=== PATIENT | male | born 1950 | race Asian ===

== ENCOUNTER 2016-07-12 13:42 | Emergency (ER) | payer SELFPAY ==
[~2016-07-12] VITALS: Ht 165.1 cm; Wt 73.0 kg
[2016-07-12 13:44] VITALS: BP 165/75; PULSE 76; RESP 20; TEMP 97.4; O2SAT 98
[2016-07-12] MEDS ORDERED: AMLO10TA2 PO (16:09)
[2016-07-12] MEDS ORDERED: MISC-274 (16:26)
--- NOTE | 2016-07-12 16:28 | PD ---
HPI Chief Complaint: Musculoskeletal Complaint Time Seen by Provider: 16:25 Travel History International Travel<30 days: No Contact w/Intl Traveler<30days: No Traveled to known affect area: No History of Present Illness HPI This 66-year-old male presents emergency Department with left knee pain 3 days. Denies injury, fall, strain. Patient also presents with prescriptions for lab work and kidney ultrasounds and is requesting for them to be done here in the emergency department. He was told he had an elevated creatinine he needs to follow-up patient for imaging, labs, and follow-up with urology. He thinks his knee pain is related to his kidney function. He denies fever, chills , nausea, vomiting, abdominal pain. Denies dysuria, hematuria. Reports decreased range of motion of his knee secondary to pain. Denies edema. Pain is worse with movement and walking. No known allergies. Primary care provider is in [place]. No other modifying factors or associated signs and symptoms. PFSH Past Medical History Cardiovascular Problems: Yes Social History Tobacco Use: No Allergies-Medications (Allergen,Severity, Reaction): Coded Allergies: No Known Allergies (Unverified , 07/12/16) Reported Meds & Prescriptions Reported Meds & Active Scripts Active Folding Walker/5" Wheels (Device) 1 Mis Mis 1 Ea .ROUTE DIRECTED Reported Amlodipine (Amlodipine Besylate) 10 Mg Tab 10 Mg PO DAILY Review of Systems Except as stated in HPI: all other systems reviewed are Neg Physical Exam Narrative GENERAL: Well-nourished, well-developed male patient, in no acute distress ; afebrile, nontoxic-appearing SKIN: Warm and dry. HEAD: Atraumatic. Normocephalic. EYES: Pupils equal and round. No scleral icterus. No injection or drainage. ENT: Mucosa pink and moist. Airway patent. NECK: Trachea midline. CARDIOVASCULAR: Regular rate. RESPIRATORY: No accessory muscle use. GASTROINTESTINAL: Flat. MUSCULOSKELETAL: Left knee is nonedematous, nonerythematous, without ecchymosis ; with full range of motion to flexion at 90; joint stable with negative drawer test; tenderness on palpation to the anterior aspect just below the patella; no obvious deformity. Left lower extremity is supple and non-tense with 2+ pedal pulse and sensory intact and without erythema or edema. No obvious deformities. No edema. NEUROLOGICAL: Awake and alert. Oriented 3. No obvious cranial nerve deficits. Motor grossly within normal limits. Normal speech. PSYCHIATRIC: Appropriate mood and affect; insight and judgment normal. Data Data Last Documented VS Vital Signs Date Time Temp Pulse Resp B/P Pulse Ox O2 Delivery O2 Flow Rate FiO2 07/12/16 13:44 97.4 76 20 165/75 98 Room Air Orders Knee, Complete (4vws) (07/12/16 16:24) [facility] Medical Decision Making Medical Screen Exam Complete: Yes Emergency Medical Condition: Yes Medical Record Reviewed: Yes Differential Diagnosis Arthritis, bursitis, knee pain Narrative Course 66-year-old male with left knee pain 3 days. Denies injury. Patient also has prescriptions for kidney ultrasound and lab work and is requesting it be done here in the ER. The patient is stable and he has no complaint of abdominal pain , nausea, vomiting, dysuria, hematuria, difficulty urinating. He has been seen by primary care provider and was told to obtain the kidney ultrasound and lab work and follow-up with urology, which he has not done. I spoke with Dr. Rosa , my attending physician, and she agreed the patient can follow up outpatient for labs and ultrasound. Left knee x-ray ordered. 1704: Left knee x-ray concludes Calcification/ossification of the quadriceps and patellar tendons as detailed above. 2. No acute fracture or significant effusion. Walker prescribed for home. Inserted patient to follow up with orthopedic as needed. Instructed patient to follow up outpatient for labs and ultrasound as prescribed. Patient verbalizes understanding and agreement with treatment plan. Patient is medically cleared and stable for discharge. Discussed reasons to return to the emergency department. Instructed patient to follow up with primary care provider. Patient agrees with treatment plan. The patients vital signs are stable and the patient is stable for outpatient follow-up and treatment. Patient discharged home, stable and in no acute distress. Diagnosis Primary Impression: Left knee pain Qualified Code: M25.562 - Left knee pain, unspecified chronicity Referrals: Primary Care Physician Urologist Patient Instructions: General Instructions, How to Choose and Use a Walker (GEN ), Knee Pain (ED) Additional Instructions: Tylenol as needed and as directed to reduce pain and inflammation Rest, ice, compress, and elevate extremity to decrease pain and inflammation Knee Brace for support Walker for support Avoid aggravating activity; increase activity as tolerated Follow-up with primary care provider Return to the emergency department immediately with worsening symptoms Med/Other Pt SpecificInfo: No Meds Exist/No RX given Scripts Folding Walker/5" Wheels 1 Mis Mis #1 Ea .route As Directed Prov:Mary Boudreaux 07/12/16 Disposition: 01 DISCHARGE HOME Condition: Stable Mary Boudreaux Jul 12, 2016 16:28
--- NOTE | 2016-07-12 16:56 | RADRPT ---
EXAM DATE/TIME: 07/12/2016 16:48 [facility] COMPARISON: No previous studies available for comparison. INDICATIONS : Left knee pain from unknown injury. MEDICAL HISTORY : None. SURGICAL HISTORY : None. ENCOUNTER: Initial ACUITY: 1 day PAIN SCORE: 8/10 LOCATION: Left distal knee FINDINGS: Four view examination of the left knee demonstrates calcification of the quadriceps and patellar tend ons at the level of the patella itself. There is also some ossification of the tibial tubercle. Well corticated flabella in the posterolateral joint space. Osseous structures are intact with no acute fr acture or significant effusion. CONCLUSION: 1. Calcification/ossification of the quadriceps and patellar tendons as detailed above. 2. No acute fracture or significant effusion. Jani Huang MD on July 12, 2016 at 16:52 Board Certified Radiologist. This report was verified electronically.
[2016-07-12 17:24] VITALS: BP 155/74
== END 2016-07-12 17:25 | disposition home or self-care (01) ==
LOC: NEPK 13:42
DX: M25.562 Pain in left knee (principal)
CPT/HCPCS: 73564; 99283